=== PATIENT | male | born 1965 | race Caucasian/White ===

== ENCOUNTER 2021-04-16 14:44 | Inpatient (IN) | payer BC ==
[~2021-04-16] VITALS: Ht 188 cm; Wt 72.6 kg
[2021-04-16 17:34] LABS: RED BLOOD COUNT 3.9 M/UL (4.20-5.50); WHITE BLOOD COUNT 6.3 K/UL (4.5-11.0)
[2021-04-16 17:52] LABS: BUN/CREATININE RATIO 15 (0-10)
[2021-04-16] MEDS ORDERED: ONDANSETRON ODT4 MG PO (23:18)
[2021-04-17 06:17] LABS: HEMOGLOBIN 10.5 gm/dl (14.0-17.5); RED BLOOD COUNT 3.72 M/UL (4.20-5.50)
[2021-04-17 06:41] LABS: BUN/CREATININE RATIO 11 (0-10)
[2021-04-17] MEDS ORDERED: CONSTULOSE10 GM/15 M PO (09:07)
[2021-04-17] MEDS ORDERED: OXYCODONE H5 MG/5 ML PO (23:18)
[2021-04-18 04:29] LABS: HEMOGLOBIN 9.8 gm/dl (14.0-17.5); RED BLOOD COUNT 3.55 M/UL (4.20-5.50); WHITE BLOOD COUNT 5.4 K/UL (4.5-11.0)
[2021-04-18 04:33] LABS: BUN/CREATININE RATIO 13 (0-10)
[2021-04-19 02:59] LABS: BUN/CREATININE RATIO 15 (0-10)
[2021-04-19] MEDS ORDERED: ENOXAPARIN80 MG/0.8 SC (12:55)
[2021-04-19] MEDS ORDERED: ASPIRIN81 MG PO (12:55)
[2021-04-19] MEDS ORDERED: ATORVASTATIN CA20 MG PO (12:55)
== END 2021-04-19 16:45 | disposition home health service (06) | DRG 300 ==
LOC: ER1 14:44 → CDU 18:17 → MED SURG 4 18:17
PROVIDERS: Emergency Medicine; Internal Medicine; ADMIT Internal Medicine
DX: I82.401 Acute embolism and thrombosis of unspecified deep veins of right lower extremity (principal); C79.51 Secondary malignant neoplasm of bone; D68.59 Other primary thrombophilia; C15.9 Malignant neoplasm of esophagus, unspecified; Z20.822 Contact with and (suspected) exposure to COVID-19; C78.02 Secondary malignant neoplasm of left lung; C78.01 Secondary malignant neoplasm of right lung; K21.9 Gastro-esophageal reflux disease without esophagitis; D50.9 Iron deficiency anemia, unspecified; R13.10 Dysphagia, unspecified; I25.10 Atherosclerotic heart disease of native coronary artery without angina pectoris; Z95.1 Presence of aortocoronary bypass graft; Z93.4 Other artificial openings of gastrointestinal tract status; Z85.01 Personal history of malignant neoplasm of esophagus; Z79.82 Long term (current) use of aspirin
CPT/HCPCS: 36415; 80048; 80053; 80061; 81001; 82436; 82570; 83540; 83550; 84133; 84300; 84443; 85014; 85018; 85025; 85379; 85610; 85730; 86140; 93971; 96374; 97110-GP-CQ; 97116; 97116-GP-CQ; 97161; 99284; G0378; J1642; J1644; J1650; J1756; J2270; J2405; U0002

== ENCOUNTER → 2021-04-16 | Outpatient (CLI) | payer BC ==
[~2021-04-16] MED LIST: ASPIRIN81 MG PO; ATORVASTATIN CA20 MG PO; CONSTULOSE10 GM/15 M PO; ENOXAPARIN80 MG/0.8 SC; ONDANSETRON ODT4 MG PO; OXYCODONE H5 MG/5 ML PO
== END ==
LOC: US 13:43
DX: Z53.8 Procedure and treatment not carried out for other reasons (principal)
CPT/HCPCS: 93971